=== PATIENT | female | born 2000 | race Two or more races ===

== ENCOUNTER 2025-04-26 22:42 | Emergency (ER) | payer OTHER ==
[~2025-04-26] VITALS: Ht 167.6 cm; Wt 129.7 kg
[2025-04-26] MEDS ORDERED: IRBESARTAN300 MG PO (22:55)
[2025-04-26] MEDS ORDERED: KETOROLAC TROMETHAMINE 60 MG VIAL IM STA (23:32)
[2025-04-27] MEDS ORDERED: KETOROLAC TROMETHAMINE 60 MG VIAL IM ONE (00:07)
== END 2025-04-27 05:07 | disposition home or self-care (01) ==
LOC: ER 22:42
DX: T14.8XXA Other injury of unspecified body region, initial encounter (principal); W18.39XA Other fall on same level, initial encounter; Y93.89 Activity, other specified; Y92.018 Other place in single-family (private) house as the place of occurrence of the external cause; Y99.9 Unspecified external cause status; I10 Essential (primary) hypertension; Z87.09 Personal history of other diseases of the respiratory system

== ENCOUNTER 2025-07-15 11:15 | Emergency (ER) | payer OTHER ==
[~2025-07-15] VITALS: Ht 170.2 cm; Wt 127.0 kg
[~2025-07-15 11:15] MED LIST: IRBESARTAN300 MG PO
[2025-07-15] MEDS ORDERED: ACETAMINOPHEN 500 MG GEL..CAP PO ONE ×2 (12:45→15:43)
[2025-07-15 16:10] LABS: BASO % 0.4 % (0.1-1.2); EOS # 0.19 (0.04-0.54); EOS % 2.0 % (0.7-7.0); LYMPH # 2.37 (1.18-3.74); LYMPH % 25.2 % (19.3-53.1); MEAN PLATELET VOLUME 9.90 fl (9.4-12.4); MONO # 0.48 (0.24-0.82); MONO % 5.1 % (4.7-12.5); NEUT # 6.30 (1.56-6.13); NEUT % 67.0 % (34.0-71.1); RED CELL DISTRIBUTION WIDTH 13.2 % (11.6-14.4)
[2025-07-15 16:44] LABS: INR 0.98
[2025-07-15 17:06] LABS: BUN CREA RATIO 23 (7.0-25.0); CREATININE SERUM 0.56 mg/dL (0.55-1.02); GFR 134.15; GLUCOSE FASTING 84 mg/dL (65-100); OSMOLALITY SERUM 282 MOSM/KG (275-295)
[2025-07-15 17:10] LABS: HCG QUANTITATIVE < 1 mUI/mL (1-3)
[2025-07-15 17:30] LABS: URINE APPEARANCE Clear; URINE BILIRRUBIN Negative (NEGATIVE); URINE BLOOD Small; URINE COLOR Dark Yellow; URINE GLUCOSE Negative (NEGATIVE); URINE KETONE Negative (NEGATIVE); URINE LEUKOCYTE Negative; URINE NITRATE Negative; URINE PROTEIN Trace (NEGATIVE); URINE UROBILINOGEN 0.2 E.U./dl
[2025-07-15 17:33] LABS: URINE BACTERIA 348.9 uL (0.0-1933); URINE EPITHELIAL CELLS 15.7 uL (0.0-38.8); URINE RBC 18.1 uL (0.0-20.8); URINE WBC 11.4 uL (0.0-23.2)
[2025-07-15 17:43] LABS: URINE CAST 0.42 uL (0.0-1.40)
== END 2025-07-15 21:56 | disposition home or self-care (01) ==
LOC: ER 11:16
PROVIDERS: General Practice
DX: E28.2 Polycystic ovarian syndrome (principal); N93.9 Abnormal uterine and vaginal bleeding, unspecified; R10.20 Pelvic and perineal pain unspecified side; I10 Essential (primary) hypertension